=== PATIENT | male | born 1975 | race Caucasian/White ===

== ENCOUNTER 2017-03-06 23:43 | Emergency (ER) | payer BC ==
[2017-03-06 23:48] VITALS: BP 119/82; PULSE 88; RESP 20; TEMP 97.8
[2017-03-07] MEDS ORDERED: SODIUM CHLORIDE 0.9% 1,000 ML IV STA (00:21)
[2017-03-07] MEDS ORDERED: ONDANSETRON 4 MG/2 ML VIAL IVP STA (00:21)
[2017-03-07] MEDS ORDERED: MAG HYDROX/AL HYDROX/SIMETH 30 ML, HYOSCYAMINE ELIXIR 10 ML, CIMETIDINE HCL 300 MG PO STA ×3 (00:30)
[2017-03-07 00:39] LABS: Basophils % (A) 1 %; CH 31.7; CHCM 34.6; Eosinophils # (A) 0.2 k/uL (0-0.7); Eosinophils % (A) 3 %; HCT 47.5 % (39.0-53.0); HDW 2.36; Luc # (Auto) 0.25; Luc % (Auto) 4; Lymphocytes # (A) 2.2 k/uL (1.0-4.8); Lymphocytes % (A) 33 %; MCH 32.9 pg (25.0-35.0); MCHC 35.8 g/dL (31.0-37.0); MCV 91.9 fL (80.0-100.0); Mean Platelet Volume 7.2; Monocytes # (A) 0.4 k/uL (0-1.0); Monocytes % (A) 6 %; Neutrophils # (A) 3.6 k/uL (1.3-7.7); Neutrophils % (A) 54 %; RBC 5.17 m/uL (4.30-5.90); RDW 12.7 % (11.5-15.5); WBC 6.6 k/uL (3.8-10.6); WBC (Perox) 6.18
[2017-03-07 00:42] LABS: Appearance,Urine Clear (Clear); Bilirubin,Urine Negative (Negative); Glucose,Urine (UA) Negative (Negative); Ketones,Urine Negative (Negative); Leukocyte Esterase,Urine Negative (Negative); Nitrite,Urine Negative (Negative); PH, Urine 5.5 (5.0-8.0); Protein,Urine Negative (Negative); Specific Gravity,Urine 1.015 (1.001-1.035); UA Billing (MACRO vs. MICRO) CHEM; Urobilinogen,Urine <2.0 mg/dL (<2.0)
[2017-03-07 00:49] LABS: ALT 23 U/L (21-72); AST 19 U/L (17-59); Alkaline Phosphatase 74 U/L (38-126); Amylase 39 U/L (30-110); Anion Gap 12 mmol/L; Blood Urea Nitrogen 6 mg/dL (9-20); Calcium 9.3 mg/dL (8.4-10.2); Carbon Dioxide 21 mmol/L (22-30); Chloride 110 mmol/L (98-107); Glucose 102 mg/dL (74-99); Non-African American GFR(MDRD) >60 (>60 ml/min/1.73 sqM); Potassium 4.1 mmol/L (3.5-5.1); Sodium 143 mmol/L (137-145); Total Bilirubin 2.4 mg/dL (0.2-1.3); Total Protein 7.1 g/dL (6.3-8.2)
--- NOTE | 2017-03-07 01:18 | ED ---
Nausea/Vomiting/Diarrhea HPI - General Chief complaint: Nausea/Vomiting/Diarrhea Stated complaint: Vomiting/Diarrhea Time Seen by Provider: 03/07/17 00:21 Source: patient, RN notes reviewed, old records reviewed Mode of arrival: ambulatory Limitations: no limitations - History of Present Illness Initial comments: Is a 41-year-old male presenting to the ED chief complaint of nausea and vomiting for the past day. Patient ports that he thinks that he ate something that caused him to have this vomiting. Patient reports some stomach pain. Patient denies any fever or chills. Denies any chest pain or shortness breath. Denies any back pain, diarrhea or changes in stools. Patient reports his urination has been normal. Patient reports that they friend who ate the same thing had similar complaints. Patient reports that he could not work today. - Related Data Home Medications Medication Instructions Recorded Confirmed No Known Home Medications [No 02/14/15 04/01/16 Known Home Medications] Allergies Allergy/AdvReac Type Severity Reaction Status Date / Time No Known Allergies Allergy Verified 03/06/17 23:48 Review of Systems ROS Statement: Those systems with pertinent positive or pertinent negative responses have been documented in the HPI. ROS Other: All systems not noted in ROS Statement are negative. Past Medical History Past Medical History: Asthma History of Any Multi-Drug Resistant Organisms: None Reported Past Surgical History: No Surgical Hx Reported Past Psychological History: Anxiety Smoking Status: Current every day smoker Past Alcohol Use History: Occasional Past Drug Use History: Marijuana General Exam - General Exam Comments Initial Comments: Well-appearing 41-year-old male. No acute distress. Limitations: no limitations General appearance: alert, in no apparent distress Head exam: Present: atraumatic, normocephalic, normal inspection Eye exam: Present: normal appearance, PERRL, EOMI. Absent: scleral icterus, conjunctival injection, periorbital swelling ENT exam: Present: normal exam, mucous membranes moist Neck exam: Present: normal inspection. Absent: tenderness, meningismus, lymphadenopathy Respiratory exam: Present: normal lung sounds bilaterally. Absent: respiratory distress, wheezes, rales, rhonchi, stridor Cardiovascular Exam: Present: regular rate, normal rhythm, normal heart sounds. Absent: systolic murmur, diastolic murmur, rubs, gallop, clicks GI/Abdominal exam: Present: soft, normal bowel sounds. Absent: distended, tenderness, guarding, rebound, rigid Extremities exam: Present: normal inspection, full ROM, normal capillary refill. Absent: tenderness, pedal edema, joint swelling, calf tenderness Back exam: Present: normal inspection Neurological exam: Present: alert, oriented X3, CN II-XII intact Psychiatric exam: Present: normal affect, normal mood Skin exam: Present: warm, dry, intact, normal color. Absent: rash Course Vital Signs 03/06/17 23:45 Temperature 97.8 F Pulse Rate 88 Respiratory 20 Rate Blood Pressure 119/82 O2 Sat by Pulse 97 Oximetry Medical Decision Making - Medical Decision Making 41-year-old male for one day of nausea and vomiting. Patient reports it was after something that he ate a similar friend had some or symptoms. Patient received IV blood work. Patient was going to receive IV fluids and nausea medication. Patient reports he did not want to wait any longer. Patient left AMA without knowing lab results are receiving any treatment. Patient did request a note for work. Patient was given a note for today off. Patient understands return parameters. Return parameters and treatment was ultimately discussed however patient continued to 12 AMA despite knowing that there is unknown lab work. - Lab Data Result diagrams: 03/07/17 00:01 03/07/17 00:01 Lab Results 03/07/17 03/07/17 03/07/17 Range/Units 00:01 00:01 00:01 WBC 6.6 (3.8-10.6) k/uL RBC 5.17 (4.30-5.90) m/uL Hgb 17.0 (13.0-17.5) gm/dL Hct 47.5 (39.0-53.0) % MCV 91.9 (80.0-100.0) fL MCH 32.9 (25.0-35.0) pg MCHC 35.8 (31.0-37.0) g/dL RDW 12.7 (11.5-15.5) % Plt Count 196 (150-450) k/uL Neutrophils % 54 % Lymphocytes % 33 % Monocytes % 6 % Eosinophils % 3 % Basophils % 1 % Neutrophils # 3.6 (1.3-7.7) k/uL Lymphocytes # 2.2 (1.0-4.8) k/uL Monocytes # 0.4 (0-1.0) k/uL Eosinophils # 0.2 (0-0.7) k/uL Basophils # 0.0 (0-0.2) k/uL Sodium 143 (137-145) mmol/L Potassium 4.1 (3.5-5.1) mmol/L Chloride 110 H (98-107) mmol/L Carbon Dioxide 21 L (22-30) mmol/L Anion Gap 12 mmol/L BUN 6 L (9-20) mg/dL Creatinine 0.90 (0.66-1.25) mg/dL Est GFR (MDRD) Af Amer >60 (>60 ml/min/1.73 sqM) Est GFR (MDRD) Non-Af >60 (>60 ml/min/1.73 sqM) Glucose 102 H (74-99) mg/dL Plasma Lactic Acid Je (0.7-2.0) mmol/L Calcium 9.3 (8.4-10.2) mg/dL Total Bilirubin 2.4 H (0.2-1.3) mg/dL AST 19 (17-59) U/L ALT 23 (21-72) U/L Alkaline Phosphatase 74 (38-126) U/L Total Protein 7.1 (6.3-8.2) g/dL Albumin 4.6 (3.5-5.0) g/dL Amylase 39 (30-110) U/L Lipase 75 (23-300) U/L Urine Color Yellow Urine Appearance Clear (Clear) Urine pH 5.5 (5.0-8.0) Ur Specific [place] 1.015 (1.001-1.035) Urine Protein Negative (Negative) Urine Glucose (UA) Negative (Negative) Urine Ketones Negative (Negative) Urine Blood Negative (Negative) Urine Nitrite Negative (Negative) Urine Bilirubin Negative (Negative) Urine Urobilinogen <2.0 (<2.0) mg/dL Ur Leukocyte Esterase Negative (Negative) 03/07/17 Range/Units 00:01 WBC (3.8-10.6) k/uL RBC (4.30-5.90) m/uL Hgb (13.0-17.5) gm/dL Hct (39.0-53.0) % MCV (80.0-100.0) fL MCH (25.0-35.0) pg MCHC (31.0-37.0) g/dL RDW (11.5-15.5) % Plt Count (150-450) k/uL Neutrophils % % Lymphocytes % % Monocytes % % Eosinophils % % Basophils % % Neutrophils # (1.3-7.7) k/uL Lymphocytes # (1.0-4.8) k/uL Monocytes # (0-1.0) k/uL Eosinophils # (0-0.7) k/uL Basophils # (0-0.2) k/uL Sodium (137-145) mmol/L Potassium (3.5-5.1) mmol/L Chloride (98-107) mmol/L Carbon Dioxide (22-30) mmol/L Anion Gap mmol/L BUN (9-20) mg/dL Creatinine (0.66-1.25) mg/dL Est GFR (MDRD) Af Amer (>60 ml/min/1.73 sqM) Est GFR (MDRD) Non-Af (>60 ml/min/1.73 sqM) Glucose (74-99) mg/dL Plasma Lactic Acid Je 2.0 (0.7-2.0) mmol/L Calcium (8.4-10.2) mg/dL Total Bilirubin (0.2-1.3) mg/dL AST (17-59) U/L ALT (21-72) U/L Alkaline Phosphatase (38-126) U/L Total Protein (6.3-8.2) g/dL Albumin (3.5-5.0) g/dL Amylase (30-110) U/L Lipase (23-300) U/L Urine Color Urine Appearance (Clear) Urine pH (5.0-8.0) Ur Specific [place] (1.001-1.035) Urine Protein (Negative) Urine Glucose (UA) (Negative) Urine Ketones (Negative) Urine Blood (Negative) Urine Nitrite (Negative) Urine Bilirubin (Negative) Urine Urobilinogen (<2.0) mg/dL Ur Leukocyte Esterase (Negative) Disposition Clinical Impression: Vomiting Disposition: Left Against Medical Advice Condition: Stable Referrals: None,Stated [Primary Care Provider] - 1-2 days Time of Disposition: 01:17
== END 2017-03-07 01:18 | disposition left against medical advice (07) ==
LOC: EC 23:43
DX: R11.2 Nausea with vomiting, unspecified (principal); R10.9 Unspecified abdominal pain; R19.7 Diarrhea, unspecified; F17.200 Nicotine dependence, unspecified, uncomplicated
CPT/HCPCS: 36415; 80053; 81003; 82150; 83605; 83690; 85025; 87040; 99284

== ENCOUNTER 2017-06-12 23:44 | Emergency (ER) | payer BC ==
[2017-06-12 23:56] VITALS: BP 123/81; PULSE 90; RESP 16; TEMP 98.3
--- NOTE | 2017-06-13 00:36 | ED ---
Anxiety HPI - General Chief Complaint: Anxiety Stated Complaint: anxiety Time Seen by Provider: 06/13/17 00:28 Source: patient Mode of arrival: ambulatory - History of Present Illness Initial Comments: 41-year-old male patient presents to emergency department today for evaluation of increased anxiety over the last 2 days. Patient states that he is going through a separation with his girlfriend and his home situation has been tense. He states he was at work today and started to feel very anxious. States that he was shaking and felt like his heart was racing. He states that these are the symptoms he is previously had with his flareups of his anxiety. He states that he was seen here a couple of years ago and given a prescription for Ativan. He states that he has been out of this for approximately the last year. He states that he has been managing on his own. He denies any suicidal ideation or homicidal ideation. He states he is sleeping okay. He denies any alcohol use. He states he does use marijuana occasionally. Patient denies any recent rash, fever, chills, shortness breath, chest pain, abdominal pain, nausea , vomiting, diarrhea, constipation, back pain, numbness, tingling, dizziness, weakness, hematuria, dysuria, urinary urgency, urinary frequency, headache, visual changes, or any other complaints. - Related Data Home Medications: Home Medications Medication Instructions Recorded Confirmed No Known Home Medications [No 02/14/15 04/01/16 Known Home Medications] Allergies/Adverse Reactions: Allergies Allergy/AdvReac Type Severity Reaction Status Date / Time No Known Allergies Allergy Verified 06/12/17 23:56 Review of Systems ROS Statement: Those systems with pertinent positive or pertinent negative responses have been documented in the HPI. ROS Other: All systems not noted in ROS Statement are negative. Past Medical History Past Medical History: Asthma History of Any Multi-Drug Resistant Organisms: None Reported Past Surgical History: No Surgical Hx Reported Past Psychological History: Anxiety Smoking Status: Current every day smoker Past Alcohol Use History: Occasional Past Drug Use History: Marijuana General Exam Limitations: no limitations General appearance: alert, in no apparent distress, anxious, other (This is a well-developed, well-nourished adult male patient in no acute distress. Does appear mildly anxious. Vital signs upon presentation her temperature 98.3F, pulse 90, respirations 16, blood pressure 123/81, pulse ox 99% on room air.) Eye exam: Present: normal appearance, PERRL, EOMI. Absent: scleral icterus, conjunctival injection, periorbital swelling ENT exam: Present: normal exam, mucous membranes moist Neck exam: Present: normal inspection. Absent: tenderness, meningismus, lymphadenopathy Respiratory exam: Present: normal lung sounds bilaterally. Absent: respiratory distress, wheezes, rales, rhonchi, stridor Cardiovascular Exam: Present: regular rate, normal rhythm, normal heart sounds. Absent: systolic murmur, diastolic murmur, rubs, gallop, clicks GI/Abdominal exam: Present: soft, normal bowel sounds. Absent: distended, tenderness, guarding, rebound, rigid Neurological exam: Present: alert, oriented X3, CN II-XII intact Psychiatric exam: Present: normal affect, normal mood, anxious Skin exam: Present: warm, dry, intact, normal color. Absent: rash Course Vital Signs 06/12/17 23:53 Temperature 98.3 F Pulse Rate 90 Respiratory 16 Rate Blood Pressure 123/81 O2 Sat by Pulse 99 Oximetry Medical Decision Making - Medical Decision Making This is a 41-year-old male patient who presented for evaluation of increased anxiety over the last 2 days due to a recent separation with his girlfriend. Patient has previously taken Ativan in the past, but states that he has been out for at least a year. Patient is driving himself this evening and does not have any way to get a ride home. I did explain to him that I could not administer any benzodiazepines due to him not having a safe ride home. I encouraged him to follow-up with his primary care physician for a recheck on Wednesday. I did give him a list of outpatient referrals for mental health services. I did explain to him that general anxiety disorder could be treated by psychiatry. I urged him to return here immediately should he is symptoms worsen, he develop any thoughts of harming himself or others. I encouraged him to return here immediately for any other new, worsening, or concerning symptoms. Disposition Clinical Impression: Anxiety Disposition: HOME SELF-CARE Condition: Good Instructions: Generalized Anxiety Disorder (ED) Additional Instructions: Follow-up with your primary care physician or outpatient mental health services for further evaluation of anxiety and possible prescription for anxiety medication. Return here immediately for any new, worsening, or concerning symptoms. Referrals: Ciera Garcia MD [Primary Care Provider] - 1-2 days Time of Disposition: 00:36
== END 2017-06-13 00:40 | disposition home or self-care (01) ==
LOC: EC 23:44
DX: F41.9 Anxiety disorder, unspecified (principal); F12.90 Cannabis use, unspecified, uncomplicated; F17.200 Nicotine dependence, unspecified, uncomplicated
CPT/HCPCS: 99282

== ENCOUNTER 2019-08-23 06:13 | Emergency (ER) | payer BC, OTHER ==
[2019-08-23 06:20] VITALS: BP 125/75; PULSE 99; RESP 18; TEMP 98.3
== END 2019-08-23 07:34 | disposition home or self-care (01) ==
LOC: EC 06:13
DX: Z02.89 Encounter for other administrative examinations (principal); Y99.0 Civilian activity done for income or pay
CPT/HCPCS: 99499

== ENCOUNTER → 2020-04-29 | Outpatient (CLI) | payer BC | END | disposition home or self-care (01) | LOC: LABWHC1 14:40 | PROVIDERS: ATTEND Emergency Medicine | DX: Z03.818 Encounter for observation for suspected exposure to other biological agents ruled out (principal) | CPT/HCPCS: U0003; C9803 ==

== ENCOUNTER → 2020-07-02 | Outpatient (CLI) | payer BC | END | disposition home or self-care (01) | LOC: LABWHC1 13:56 | PROVIDERS: ATTEND Emergency Medicine | DX: Z20.828 Contact with and (suspected) exposure to other viral communicable diseases (principal) | CPT/HCPCS: U0003; C9803 ==